=== PATIENT | female | born 1980 ===

== ENCOUNTER 2020-12-20 16:40 | Outpatient (REF) | payer OTHER, SELFPAY ==
--- NOTE | ~2020-12-20 | XR_ITS ---
EXAMINATION: XR SHOULDER, RIGHT CLINICAL INFORMATION: Pain right shoulder. COMPARISON: None TECHNIQUE: AP external rotation, Grashey, scapular Y, and axillary views of the right shoulder. FINDINGS: The bones and soft tissues are normal. No fracture. Glenohumeral and acromioclavicular alignment is anatomic with normal joint space. No abnormal soft tissue calcifications. XR/XR shoulder RT min 2V IMPRESSION: Unremarkable right shoulder exam.
== END 2020-12-20 16:41 | disposition home or self-care (01) ==
LOC: HO.XRAY 16:40
PROVIDERS: PCP Internal Medicine; Visit Provider Internal Medicine
DX: M25.511 Pain in right shoulder (principal)
CPT/HCPCS: 73030

== ENCOUNTER → 2021-01-15 13:52 | Outpatient (BNVA) | payer OTHER, SELFPAY | PROVIDERS: PCP Internal Medicine; Visit Provider Physician Assistant ==

== ENCOUNTER 2021-01-31 15:01 | Outpatient (REF) | payer OTHER, SELFPAY ==
--- NOTE | ~2021-01-31 | XR_ITS ---
EXAMINATION: XR CERVICAL SPINE CLINICAL INFORMATION: Radiculopathy. COMPARISON: None TECHNIQUE: 3 views of the cervical spine were obtained. FINDINGS: There are no prevertebral soft tissue or bony abnormalities demonstrated. No compression fractures or subluxations are identified. Alignment is maintained at the atlanto-axial articulation. The disc spaces are preserved. No endplate changes are seen. There are bilateral C7 small cervical ribs. The prevertebral soft tissues are normal. The neural foramina are patent. XR/XR cervical spine 3V IMPRESSION: Small bilateral C7 cervical ribs. No visible acute fracture, dislocation or lytic process.
== END 2021-01-31 15:02 | disposition home or self-care (01) ==
LOC: HO.XRAY 15:01
PROVIDERS: PCP Internal Medicine; Visit Provider Nurse Practitioner Family
DX: M54.12 Radiculopathy, cervical region (principal); M25.511 Pain in right shoulder; G89.29 Other chronic pain; Z79.899 Other long term (current) drug therapy
CPT/HCPCS: 72040

== ENCOUNTER 2021-03-08 16:00 | Outpatient (RCR) | payer OTHER, SELFPAY ==
--- NOTE | 2021-02-08 14:54 | MHC.PT.EP ---
[facility] [place] Office [place] Office [place] Office [address] Philip Cortes [address] [phone] F: [phone] F: [phone] F: [phone] F: [phone] Physical Therapy Plan of Care Date of Evaluation: Date of Surgery: NA Diagnosis: Disorder of bone unspecified radiculopathy cervical region Assessment: 40 year old female referred for Disorder of bone unspecified radiculopathy cervical region . Pt reports of having intermittent pain in neck, R shoulder which travels down to her hand for about a year. Examination reveals 0/10 pain at rest and 4/10 pain during morning, pain with shoulder ROMs, decreased shoulder and scap strength, positive empty can and hawkin amos and altered posture. Symptoms suggestive of possible posterior impingement. She would benefit from PT to address the aforementioned impairments and improve tolerance to activities like over head reaching, sleeping and returning to PLOF. She is motivated to pariticipate in therapy. Frequency and Duration: The patient will be seen 2/week for 5 weeks Short Term Goals: 1. Pt will have 50% decrease in pain which will enable her to sleep through the night in 2 weeks. 2. Pt will be able to perform all ADLs without pain in 3 weeks. [employer] Goals: 1. Pt will be independent with HEP for symptom management and maintenance following d/c in 4 weeks. 2. Pt will return to PLOF in 5 weeks. Treatment Plan: Modalities to reduce pain, spasms and effusion. Manual therapy to restore motion and function. Therapeutic exercise to improve strength and flexibility. Neuromuscular re-education for posture and balance. Therapeutic activities to return to functional activities of daily living. Electronically signed by: Brianna Loza, PT, DPT Please sign and return to therapist. Thank you for your referral.
--- NOTE | 2021-04-06 11:53 | MHC.PT.DC ---
[facility] [place] Office [place] Office [place] Office [address] Philip Cortes [address] [phone] F: [phone] F: [phone] F: [phone] F: [phone] Physical Therapy Discharge Report Diagnosis: Disorder of bone unspecified radiculopathy cervical region Date of Surgery: NA Date of Evaluation: 02/08/21 Date of Discharge: 04/06/21 Treatments to Date: 7 Cancellations to Date: 0 No Shows to Date: 0 Discharge Status: Achieved Goals Improved Function Independent with HEP Discharge Summary: Yamilka completed 7 PT visits and was painfree. She has therefore been discharged from therapy. Electronically signed by: Brianna Loza, PT DPT Please sign and return to therapist. Thank you for your referral.
== END 2021-04-06 11:53 | disposition other institution (70) ==
LOC: HO.PT 16:00
PROVIDERS: PCP Internal Medicine; Visit Provider Physician Assistant
DX: M89.9 Disorder of bone, unspecified (principal); M54.12 Radiculopathy, cervical region
CPT/HCPCS: 97110; 97112; 97140; 97161; 97530

== ENCOUNTER 2021-03-31 08:48 | Outpatient (REF) | payer OTHER, SELFPAY ==
[2021-03-31 10:26] LABS: Alanine Aminotransferase 13 U/L (0-31); Albumin Level 4.4 g/dL (3.5-5.0); Anion Gap 17 (12-20); Aspartate Amino Transferase 16 U/L (5-31); Bilirubin Total 0.9 mg/dL (0.0-1.0); Blood Urea Nitrogen 17 mg/dL (9-16); Calcium 9.4 mg/dL (8.4-10.2); Carbon Dioxide 21 mmol/L (22-29); Chloride 105 mmol/L (96-108); Cholesterol 149 mg/dL; Estimated Glomerular Filt Rate > 60; Glucose Fasting 94 mg/dL (60-99); HDL Cholesterol 25 mg/dL; LDL Cholesterol Calculated 50 mg/dl; Potassium 4.3 mmol/L (3.3-5.1); Sodium 139 mmol/L (135-145); Total Protein 7.3 g/dL (6.5-8.0); Triglycerides 374 mg/dL
[2021-03-31 10:27] LABS: Alkaline Phosphatase 52 U/L (39-117)
[2021-04-03 20:32] LABS: Vitamin D 25-OH, D2 <4 ng/mL; Vitamin D 25-OH, D3 28 ng/mL; Vitamin D 25-OH, Total 28 ng/mL (30-100)
== END 2021-03-31 08:49 | disposition home or self-care (01) ==
LOC: HO.LAB 08:48
PROVIDERS: PCP Internal Medicine; Visit Provider Internal Medicine
DX: E55.9 Vitamin D deficiency, unspecified (principal); Z82.49 Family history of ischemic heart disease and other diseases of the circulatory system
CPT/HCPCS: 36415; 80053; 80061; 82306

== ENCOUNTER 2021-05-11 15:37 | Outpatient (REF) | payer OTHER, SELFPAY ==
--- NOTE | ~2021-05-11 | MM_ITS ---
EXAMINATION: MM SCREENING DIGITAL BREAST TOMOSYNTHESIS, BILATERAL CLINICAL INFORMATION: Screening. Asymptomatic. No prior breast imaging. Age 41. No known family history breast cancer. The lifetime risk of breast cancer based on the Tyrer-Cuzick Model is 7%. COMPARISON: None (current study represents initial baseline exam). TECHNIQUE: Digital breast tomosynthesis is performed in both the craniocaudal and mediolateral oblique views along with computer-aided detection (CAD). Synthesized 2D images are generated from the tomosynthesis. Additional left MLO view is provided. FINDINGS: There are scattered areas of fibroglandular density (ACR BI-RADS breast composition Category b). Breast tissue composition borders on heterogeneously dense. There are no significant masses, abnormal calcifications, or other abnormalities. Skin contours are smooth. MM/MM tomosynthesis screening BI IMPRESSION: No mammographic evidence of malignancy. ASSESSMENT: BI-RADS 1: Negative RECOMMENDATION: Routine annual mammography screening. This patient's information was entered into a reminder system with a target due date for their next mammogram.
== END 2021-05-11 15:38 | disposition home or self-care (01) ==
LOC: HO.MAMMO 15:37
PROVIDERS: Visit Provider Internal Medicine
DX: Z12.31 Encounter for screening mammogram for malignant neoplasm of breast (principal)
CPT/HCPCS: 77063; 77067

== ENCOUNTER → 2021-10-15 13:40 | Outpatient (BNVA) | payer OTHER, SELFPAY | PROVIDERS: PCP Internal Medicine; Referring Provider Internal Medicine; Visit Provider Surgery | DX: K64.4 Residual hemorrhoidal skin tags (principal); K64.8 Other hemorrhoids | CPT/HCPCS: 46600 ==

== ENCOUNTER 2021-12-07 07:25 | Day surgery (SDC) | payer OTHER, SELFPAY ==
[2021-12-03 11:08] VITALS: BMI 49.8
--- NOTE | 2021-12-06 09:18 | HO.ANESPROP2 ---
Documented by User: Nevin Connelly NP 12/06/21 09:18 HPI - Anesthesia Eval Consult details Narrative: 41yo F for Exam Under Anesthesia,Hemorrhoidectomy PMFSH Active Problems Active Problems: All Active Problems (Updated 10/15/21 @ 14:04 by Carlos Szymanski MD) Internal and external bleeding hemorrhoids (Acute) Dermoid cyst of face (Acute) Hemorrhoids (Acute) Hypovitaminosis D (Acute) Blurry vision (Acute) Family history of hypertension (Acute) Scapular dysfunction (Acute) Cervical radiculopathy (Acute) Right shoulder pain (Acute) Past Medical History Medical History Blurry vision Dermoid cyst of face Family history of hypertension Hemorrhoids Hypovitaminosis D Internal and external bleeding hemorrhoids Right shoulder pain Family History Family History Father Neuropathy Mother No problems noted. 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 Current occupational exposures/hazards: No Meds Allergies Allergy/AdvReac Type Severity Reaction Status Date / Time No Known Allergies Allergy Verified 12/07/21 07:35 Home Medications Medication Instructions Recorded Confirmed Last Taken Type cholecalciferol (vitamin D3) 25 25 mcg PO DAILY 07/26/21 10/15/21 Unknown History mcg (1,000 unit) capsule Exam Exam Date and Time: December 06, 2021 0918 Height,Weight and Vital Signs: Height 5 ft 1 in Weight 119.748 kg Assessment and Plan Assessment Anesthesia Assessment: Chart Reviewed Documented by User: Radha Guo MD 12/07/21 08:49 [facility] Past Medical History Medical History Blurry vision Dermoid cyst of face Family history of hypertension Hemorrhoids Hypovitaminosis D Internal and external bleeding hemorrhoids Right shoulder pain Family History Family History Father Neuropathy Mother No problems noted. Family history of problems with anesthesia: No Surgical History Surgical History (Updated 12/07/21 @ 08:48 by Radha Guo MD) Hx of wisdom tooth extraction No pertinent past surgical history History of Problems with Anesthesia: No Social History Social History Housing: Apartment Alcohol intake: never Patient Tobacco Use Status: Never used Tobacco e-Cigarette/Vaping Use: Never Used Second Hand Smoke Exposure: No Use of substances other than those prescribed or required for medical reasons: No Are you DNR?: No Advance Directives: No Advance Directives Information Provided: Yes service: No Current occupational status: employed 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 Current occupational exposures/hazards: No Meds Allergies Allergy/AdvReac Type Severity Reaction Status Date / Time No Known Allergies Allergy Verified 12/07/21 07:35 Home Medications Medication Instructions Recorded Confirmed Last Taken Type cholecalciferol (vitamin D3) 25 25 mcg PO DAILY 07/26/21 10/15/21 Unknown History mcg (1,000 unit) capsule Exam Height,Weight and Vital Signs: Height 5 ft 1 in Weight 119.748 kg Vital Signs Temp Pulse Resp BP Pulse Ox 12/07/21 07:48 98.0 F 86 16 111/71 97 Pertinent Lab Results Pertinent Lab Results: Lab Results 12/07/21 Range/Units 07:30 Urine Test NEGATIVE (NEGATIVE) Airway Mallampati Class: II TM Dist: >3cm Neck ROM: Full Loose/Missing/Broken Teeth: Yes ([place] teeth ) Heart: RRR Lungs: CTAB Assessment and Plan Assessment Anesthesia Assessment: Anesthesia Plan Discussed Final Anesthetic Review Family History of Problems with Anesthesia: No History of Problems with Anesthesia: No NPO: Yes ASA Class: II Final Preanesthetic Review: No Changes in Pt Med Stat, Meds/Allgs Chart Reviewed, Consent Obtained/Reviewed and Anes Risks/Benef Reviewed Patient Risk: Low Procedure Risk: Low Assessment/Block/Sedation in SS: Assess/Block/Sedation-SS Anesthetic Plan Anesthetic Plan: GA Disposition: Standard PACU
[2021-12-07] VITALS (11 sets, daily range): BP systolic 102–125; BP diastolic 58–82; PULSE 63–96; RESP 14–17; TEMP 36.1–36.7; O2SAT 97–98; BMI 22.6
[2021-12-07 07:54] LABS: UPreg QC Valid YES; Urine Pregnancy NEGATIVE (NEGATIVE)
[2021-12-07] MEDS: Lactated Ringers 1,000 ML 100 ML IVCONT (08:00)
--- NOTE | 2021-12-07 08:42 | MHC.SHP ---
Pre-Procedural Eval Section A Date of Service: 12/07/21 The patient is an INPATIENT: No Section B Chief Complaint: residual hemorrhoidal skin tags, Details of Present Illness: has had bleeding hemorrhoids for many years Relevant Family History (Specify if Yes): No Relevant Social History: None Present Medications: see Short Stay Collaborative assessment Medical History: No relevant PMH Allergies: Allergies Allergy/AdvReac Type Severity Reaction Status Date / Time No Known Allergies Allergy Verified 12/07/21 07:35 Review of Systems Sugical H&P ROS: Negative: Constitution, Cardiovascular, Respiratory, Neurological, Psychiatric, Hem-Onc, Allergic/Immunologic, Genitourinary, Musculoskeletal, Integumentary, Endocrine and Eyes/Ears/Nose/Throat and Yes, Specify: Gastrointestinal ( bleeding with BMs) Exam Surgical H&P Exam: Normal: HEENT, Normal: Heart, Normal: Lungs, Normal: Extremities, Normal: Abdomen, Normal: Skin and Normal: Neurological Plan Diagnosis/Plan: Unchanged I have reviewed the history and physical and performed a pertinent physical examination on my patient. No changes have occurred unless specified.
--- NOTE | 2021-12-07 09:42 | W.PM.OPN ---
Operative Note Operative Note Date of Service: 12/07/21 Narrative: preop diagnosis: Internal external hemorrhoids with bleeding Postop diagnosis: the same procedure: Exam under anesthesia hemorrhoidectomy x2 columns Surgeon: Carlos Szymanski MD The patient is a 41-year-old female with note of hemorrhoids, with complaints of frequent bleeding as well as pain. She therefore wanted to proceed with hemorrhoidectomy. She understood the technique of the procedure. She was aware of the risks, benefits, and alternatives. She was brought to the operating room placed in prone dorinda-knife position under general anesthesia via endotracheal tube. The buttocks were retracted with wide tape laterally. The perianal area was prepped and draped in the usual sterile fashion. A surgical time-out was done. The patient received Cefotan 2 g IV preoperatively . I infiltrated the perianal area with lidocaine 1%. I then examined the anal orifice which showed no hemorrhoids on the right posterolateral as well as on the left anterolateral area. I inserted the Jami Murphy retractor. I examined the anal canal circumferentially. these hemorrhoidal columns were noted to be a mix of internal and external. There were no other lesions on examination. There was no fissure I applied a Aragon grasper at the hemorrhoidal column posteriorly to retract this. I have made a figure of stitch at the pedicle using a chromic 3-0 stitch. I made an incision around this hemorrhoidal column to the perianal skin with the blade 15. I excised this hemorrhoidal column above the plane of sphincters using scissors. I excised this hemorrhoidal column with a running chromic 3-0 stitch with additional hemostatic [id number] sutures placed . I duplicated this same procedure on the hemorrhoidal column anteriorly. Again this was retracted with a Aragon grasper. I made a figure of 8 stitch at the pedicle. I made an incision around this hemorrhoidal column to the perianal skin with a blade 15. I excised this above the plane of sphincters. I closed this incision with a running chromic 3-0 stitch with additional hemostatic sutures placed . Once hemostasis was ensured, I proceeded to then infiltrated the perianal area with Marcaine 0.5% for postop analgesia. The procedure was then completed . The patient tolerated procedure well. No complication noted. Initial fine counts of sponges instruments were correct. Estimated blood loss about 15 cc . The patient was extubated without difficulty and transferred to the recovery room with stable vital signs.
[2021-12-07] MEDS: oxyCODONE HCl Immed Release 5 MG TABLET PO (10:13)
[2021-12-07] MEDS: Acetaminophen 325 MG TABLET 650 MG PO (10:13)
[2021-12-07] MEDS: fentaNYL citrate/PF 100 MCG/2 ML VIAL 25 MCG IVPUSH ×2 (10:17→10:37)
== END 2021-12-07 11:50 | disposition home or self-care (01) ==
PROVIDERS: Nurse Practitioner; PCP Internal Medicine; Visit Provider Surgery
PROC: (CPT 46260; principal; 2021-12-07 09:00)
DX: K64.8 Other hemorrhoids (principal); K64.4 Residual hemorrhoidal skin tags; E55.9 Vitamin D deficiency, unspecified; H53.8 Other visual disturbances; Z79.899 Other long term (current) drug therapy
CPT/HCPCS: 46260; 81025; 88304; J0690; J1100; J1885; J2250; J2405; J3010

== ENCOUNTER → 2021-12-17 15:59 | Outpatient (BNVA) | payer OTHER, SELFPAY | PROVIDERS: PCP Internal Medicine; Visit Provider Surgery ==

== ENCOUNTER → 2022-01-28 08:58 | Outpatient (BNVA) | payer OTHER, SELFPAY | PROVIDERS: PCP Internal Medicine; Referring Provider Internal Medicine; Visit Provider Surgery | DX: Z13.89 Encounter for screening for other disorder (principal) ==

== ENCOUNTER 2022-05-14 14:31 | Outpatient (REF) | payer OTHER, SELFPAY ==
--- NOTE | ~2022-05-14 | MM_ITS ---
EXAMINATION: MM SCREENING DIGITAL BREAST TOMOSYNTHESIS, BILATERAL CLINICAL INFORMATION: Screening. Asymptomatic. The lifetime risk of breast cancer based on the Tyrer-Cuzick Model is 8.2%. COMPARISON: Mammography: May 11, 2021 TECHNIQUE: Digital breast tomosynthesis is performed in both the craniocaudal and mediolateral oblique views along with computer-aided detection (CAD). Synthesized 2D images are generated from the tomosynthesis. FINDINGS: The breasts are heterogeneously dense, which may obscure small masses (ACR BI-RADS breast composition Category c). There are no significant masses, abnormal calcifications, or other abnormalities. MM/MM tomosynthesis screening BI IMPRESSION: There are no significant changes from prior study. ASSESSMENT: BI-RADS 1: Negative RECOMMENDATION: Routine annual mammography screening. This patient's information was entered into a reminder system with a target due date for their next mammogram.
== END 2022-05-14 14:32 | disposition home or self-care (01) ==
LOC: HO.MAMMO 14:31
PROVIDERS: Visit Provider Internal Medicine
DX: Z12.31 Encounter for screening mammogram for malignant neoplasm of breast (principal)
CPT/HCPCS: 77063; 77067

== ENCOUNTER 2023-04-28 14:33 | Outpatient (AMB) | payer OTHER, SELFPAY ==
[2023-04-28 14:36] VITALS: BP 112/70; BMI 24.6
--- NOTE | 2023-04-28 14:36 | MHC.PC.OV ---
Vital Signs 04/28/23 14:36 Height 5 ft 1 in Weight 130 lb BMI 24.6 BP 112/70 Blood Pressure Location Lt brachial Position Sitting Intake Visit Reasons: body rash Intake Note: Patient here for a rash Cad Administrator Required: No Accompanied by: Self / Same As Patient Allergies No Known Allergies Allergy (Verified 04/28/23 14:44) Medication List - Last Reconciled 04/28/23 by Shirley Heart MD No Known Home Meds Tobacco use date assessed: 04/28/23 Dental Screening Dental Screen Date: 04/28/23 Did you have a dental visit in the last 12 months?: Yes Did you have a dental problem in the last 6 months where you did not have access to dental care?: No Was dental information given to patient?: Patient has dentist HPI HPI Comments History of Present Illness Details This is a 43-year-old female that complains of a maculopapular pruritic rash that started about 2-3 weeks ago. Has tried Benadryl. She has it in back, upper limbs, chest and neck and is very very mild. No fever or lymphadenopathy. No symptoms associated with rash. Travel recently but she had it already. No new soaps, detergents, foods or plants. [facility] Medical History (Updated 04/28/23 @ 15:01 by Shirley Heart MD) Blurry vision Dermoid cyst of face Family history of hypertension Hemorrhoids Hypovitaminosis D Internal and external bleeding hemorrhoids Physical exam Right shoulder pain Surgical History H/O hemorrhoidectomy Hx of wisdom tooth extraction Family History Father Neuropathy Mother No problems noted. 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 1. Little interest or pleasure in doing things: not at all 2. Feeling down, depressed, or hopeless: not at all 3. Trouble falling or staying asleep, or sleeping too much: not at all 4. Feeling tired or having little energy: not at all 5. Poor appetite or overeating: not at all 6. Feeling bad about yourself - or that you are a failure or have let yourself or your family down: not at all 7. Trouble concentrating on things, such as reading the newspaper or watching television: not at all 8. Moving or speaking so slowly that other people could have noticed. Or the opposite - being so fidgety or restless that you have been moving around a lot more than usual: not at all 9. Thoughts that you would be better off or of hurting yourself in some way: not at all Total score: 0 Depression Screening Interpretation: Negative 93829 - PHQ-9 Billing: Yes Source: Developed by Drs. Heladio Giraldo, Radha Ibrahim, Jd Stauffer and colleagues, with an educational bert from [employer]. Thrive Questionnaire Date Thrive assessed: 04/28/23 I am a: Patient What is your living situation today?: I have a steady place to live Within the past 12 months, did the food you bought not last and you didn't have the money to get more?: Never true Within the past 12 months, did you worry whether your food would run out before you got money to buy more?: Never true Do you have trouble paying for medicines?: No Do you have trouble getting transportation to medical appointments?: No Do you have trouble paying your heating and electricity bill?: No Do you have trouble taking care of your child, family member or friend?: No Do you have trouble with day-to-day activities such as bathing, preparing meals, shopping, managing finances, etc.?: No Are you currently unemployed and looking for a job?: No Are you interested in more education?: No Please select the resources that you would like help with: None Currently or been in a relationship where the following occur: no concerns reported AUDIT C Alcohol Use Questionnaire (AUDIT-C) 1. How often do you have a drink containing alcohol?: Never Total Score: 0 MARIA ELENA-7 AMB Questionnaire MARIA ELENA-7 Date MARIA ELENA - 7 assessed: 04/28/23 Feeling nervous, anxious, or on edge: 0 = Not at all Not being able to stop or control worryin = Not at all Worrying too much about different things: 0 = Not at all Trouble relaxin = Not at all Being so restless that it is hard to sit still: 0 = Not at all Becoming easily annoyed or irritable: 0 = Not at all Feeling afraid as if something awful might happen: 0 = Not at all Total MARIA ELENA-7 score (0-4 normal; 5-9 mild; 10-14 moderate; 15-21 severe): 0 Source: Developed by Drs. Heladio Giraldo, Radha Ibrahim, Jd Stauffer and colleagues, with an educational bert from [employer]. MARIA ELENA-7 Assessment Billing MARIA ELENA-7 Assessment Tool: MARIA ELENA-7 Assessment 53852 Review of Systems Const All systems reviewed & are unremarkable except as noted in HPI and below Eyes Reports no additional complaints, Denies change in vision and Denies other visual disturbances Card Denies chest pain at rest, Denies chest pain with activity, Denies edema, Denies irregular heart rhythm, Denies claudication, Denies dyspnea, Denies dyspnea on exertion, Denies orthopnea, Denies paroxysmal nocturnal dyspnea and Denies slow heart rate Resp Denies cough, Denies dyspnea and Denies dyspnea on exertion GI Denies abdominal pain, Denies change in bowel habits, Denies excessive flatus, Denies nausea and Denies vomiting Denies urinary incontinence, Denies urinary hesitancy and Denies urinary urgency Musc Denies abnormal gait, Denies atrophy, Denies deformity and Denies limited range of motion Skin/Breast Denies bleeding lesions, Denies changing lesions and Reports rash Neuro Denies abnormal gait and Denies lack of coordination Physical exam (Primary Care) Vital Signs: Last Vital Signs BP 112/70 04/28/23 14:36 BMI result Body Mass Index 24.6 Tobacco/Smoking Status: Tobacco use Status Tobacco use date assessed 04/28/23 04/28/23 14:42 Patient Tobacco Use Status Never used Tobacco 04/28/23 14:42 Tobacco use type 04/28/23 14:42 e-Cigarette/Vaping Use Never Used 04/28/23 14:42 PHQ-9: PHQ-9 Score PHQ-9: Total score 0 04/28/23 14:42 Depression Screening Interpretation: Negative Thrive Assessment: Date of Thrive Assessment Date Thrive assessed 04/28/23 04/28/23 14:42 Currently or been in a relationship where the following occur: no concerns reported Eyes General: appearance normal, both eyes and all related structures Eyelids: Yes eyelids normal Conjunctivae: conjunctivae normal Neck Neck: Yes normal visual inspection and Yes supple Resp Effort & Inspection: normal respiratory effort Auscultation: clear to auscultation bilaterally Cardio Jugular venous distension: no JVD Rate: regular rate Rhythm: regular rhythm Heart sounds: S1 normal heart sound present and S2 normal heart sound present Skin Rashes: rashes noted maculopapular rash diffuse Extrem General: Yes full ROM Assessment and Plan Assessment & Plan (1) Rash: Code(s): R21 - Rash and other nonspecific skin eruption Plan: Start cetirizine. Start prednisone pack. Referred to Allergy and immunology. Orders: Referrals Allergy & Immunology Referral [id number] - Allergy, unspecified, initial encounter Medications: New cetirizine (All Day Allergy (cetirizine)) 10 mg PO DAILY 7 days PRN 7 tabs 0RF allergy symptoms prednisone Take 3 tabs the first 2 days, then 2 tabs for the next 2 days, then 1 tab for the next 2 days 10 mg PO DIRECTED 6 days PRN 12 tabs 0RF rash Coding Level of Care Code Est Pt Level 3 (38243) Diagnoses Rash R21 Additional Codes MARIA ELENA-7 Assessment Billing - MARIA ELENA-7 Assessment Tool: MARIA ELENA-7 Assessment 11618 ([id number]) Time Spent (min) 17
== END 2023-04-28 14:58 | disposition home or self-care (01) ==
PROVIDERS: PCP Internal Medicine; Visit Provider Internal Medicine
DX: R21 Rash and other nonspecific skin eruption (principal)
CPT/HCPCS: 99213

== ENCOUNTER 2023-06-02 09:53 | Outpatient (REF) | payer OTHER, SELFPAY ==
--- NOTE | ~2023-06-02 | MM_ITS ---
EXAMINATION: MM SCREENING DIGITAL BREAST TOMOSYNTHESIS, BILATERAL CLINICAL INFORMATION: Screening. Asymptomatic. COMPARISON: Mammography: 05/14/2022, 05/11/2021. TECHNIQUE: Digital breast tomosynthesis is performed in both the craniocaudal and mediolateral oblique views along with computer-aided detection (CAD). Synthesized 2D images are generated from the tomosynthesis. FINDINGS: The breasts are heterogeneously dense, which may obscure small masses (ACR BI-RADS breast composition Category c). There are no suspicious masses, suspicious grouped calcifications, or areas of architectural distortion. The parenchymal pattern is stable from prior exams. MM/MM tomosynthesis screening BI IMPRESSION: No mammographic evidence of malignancy. ASSESSMENT: BI-RADS BI-RADS 1 - Negative RECOMMENDATION: Routine annual mammography screening. 1 year F/U This examination should not preclude the clinical evaluation of a suspicious palpable abnormality. This patient's information was entered into a reminder system with a target due date for their next mammogram.
== END 2023-06-02 09:54 | disposition home or self-care (01) ==
LOC: HO.MAMMO 09:53
PROVIDERS: Visit Provider Internal Medicine
DX: Z12.31 Encounter for screening mammogram for malignant neoplasm of breast (principal)
CPT/HCPCS: 77063; 77067

== ENCOUNTER → 2023-06-02 10:00 | Outpatient (BNV) | payer OTHER, SELFPAY | PROVIDERS: Visit Provider Radiology Diagnostic Radiology | DX: Z12.31 Encounter for screening mammogram for malignant neoplasm of breast (principal) | CPT/HCPCS: 77063; 77067 ==

== ENCOUNTER 2023-10-16 11:42 | Outpatient (AMB) | payer OTHER, SELFPAY ==
--- NOTE | 2023-10-16 11:50 | MHC.OFFVIS ---
Intake Vital Signs 10/16/23 11:51 Height 5 ft 4 in Weight 133 lb BMI 22.8 BP 110/62 Intake Visit Reasons: New patient Annual Supervisor Cigar Making Machine Required: No Information Interpreted: clinical only Staffing Assistant: Staffing Assistant Present Allergies No Known Allergies Allergy (Verified 10/16/23 11:52) Medication List - Last Reconciled 10/16/23 by Ginette Leyva CNM No Known Home Meds Is last menstrual period known: Yes Last menstrual period: 09/20/23 Do you need a note to return to daycare/school/sports/work: No HPI New patient Annual HPI Details Patient is here for juice standardizer annual exam. She has never been here before she has a primary care provider at [facility] but the appointments keep getting rescheduled on her. She says she has not had any blood work done in long time. The last person she saw for juice standardizer issues was in [facility]. She had an IUD that had been in for 50 years and she had it removed a couple of years ago there. She was not having any trouble with it but she did not needed anymore because she is not sexually active. 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 She has no other health concerns at all really gets normal periods that last 5 days she has had her mammogram. She is not anxious about any STIs but would like testing just while I am checking everything. On questioning she reports that when she did have sex in the past her cervix would sometimes bleed. [facility] Medical History Physical exam Internal and external bleeding hemorrhoids Dermoid cyst of face Hemorrhoids Hypovitaminosis D Blurry vision Family history of hypertension Right shoulder pain Surgical History H/O hemorrhoidectomy Hx of wisdom tooth extraction Family History Father Neuropathy Mother No problems noted. 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 Current occupational exposures/hazards: No Cognitive needs: No Hearing needs: No Vision needs: No Female Reproductive History Menstrual Age of Menarche: 15 Duration of menses: 6-7 days Date of last menstrual period: 09/20/23 control method: none Total pregnancies: 2 Full term: 2 History of abnormal pap smear: No (unknown) Physical Exam Vital Signs: Last Vital Signs BP 110/62 10/16/23 11:51 BMI result Body Mass Index 22.8 Const General: healthy appearing, comfortable, no acute distress, well developed and alert Nutritional Appearance: average body habitus Orientation/consciousness: patient oriented x3 Limitations: no limitations HEENT Head: Yes normocephalic Neck Neck: Yes normal visual inspection Chest Chest palpation & inspection: normal inspection of the chest Breast/axilla inspection: normal inspection of the breasts and normal inspection of the axillae Breast/axilla palpation: normal palpation of the breasts and normal palpation of the axillae Resp Effort & Inspection: normal respiratory effort GI Inspection: Yes normal to inspection, No Abdominal wall edema and No distended Palpation (GI): Soft to palpation and nontender Other: Normal speculum exam vagina normal cervix appeared parous there was a reddened area at 11:00 o'clock. cervix did bleed quite readily with the Pap smear. Normal mucus otherwise. Uterus small anteverted mobile nontender as was cervix adnexa nontender not enlarged good tone with Kegel. General: Yes bladder normal to palpation External Female Exam: normal external appearance and normal appearance of the urethra Speculum Exam - Vagina: normal appearance of the vagina, normal palpation and normal vaginal discharge Speculum Exam - Cervix: normal appearance of the cervix, normal palpation and nontender Bimanual exam- vagina & uterus: normal bimanual exam, normal palpation, uterine size normal, bladder normal to palpation, consistency normal, normal palpation, uterine mobility normal, uterine shape normal, No Cervical tenderness present, non-tender and no cervical motion tenderness Bimanual Exam- Adnexa, other: normal adnexae, no masses, normal and No adnexal tenderness Neuro General: patient oriented x3 Assessment & Plan Assessment & Plan (1) Screening for cervical cancer: Code(s): Z12.4 - Encounter for screening for malignant neoplasm of cervix (2) Encounter for screening examination for sexually transmitted disease: Code(s): Z11.3 - Encounter for screening for infections with a predominantly sexual mode of transmission Plan -----Discussed in this visit the following: healthy balanced diet, regular and consistent exercise, getting recommended health screens, doing the best she can for her particular health concerns, kegel exercises, pap smear screening and followup recommendations, mammography screening and SBE, normal changes in cycles in her life stage--- . I do her a picture of the cervix where the red spot was at 11:00 o'clock will await the results of the Pap smear the cervix was quite friable with the Pap. I offered testing for STIs if she was interested and she excepted she may get them done now or await a visit with her primary to have primary blood work ordered. She says that needs to be rescheduled and she is not sure when it is because they rescheduled her appointment and give her gave her different provider the last time. Information about the patient portal also given she reviewed what she would do for control and at the very least she would use condoms she is not planning any sexual activity any time soon. She states she had her mammogram a couple months ago. Orders: Orders CT NG by PCR Today Z01.419 - Encounter for gynecological examination (general) (routine) without abnormal findings Bacterial Vaginosis Panel Today Z20.2 - Contact with and (suspected) exposure to infections with a predominantly sexual mode of transmission HIV Ab/Ag Today Z11.3 - Encounter for screening for infections with a predominantly sexual mode of transmission, Z12.4 - Encounter for screening for malignant neoplasm of cervix Pap Smear Today Z01.419 - Encounter for gynecological examination (general) (routine) without abnormal findings Hepatitis B Surface Antigen Today Z11.3 - Encounter for screening for infections with a predominantly sexual mode of transmission, Z12.4 - Encounter for screening for malignant neoplasm of cervix Hepatitis C Antibody Today Z11.3 - Encounter for screening for infections with a predominantly sexual mode of transmission, Z12.4 - Encounter for screening for malignant neoplasm of cervix Syphilis Screen Today Z11.3 - Encounter for screening for infections with a predominantly sexual mode of transmission, Z12.4 - Encounter for screening for malignant neoplasm of cervix Coding Level of Care Code New Pt Prev Care 40-64y(20536) Diagnoses Screening for cervical cancer Z12.4 Encounter for screening examination for sexually transmitted disease Z11.3
[2023-10-16 11:51] VITALS: BP 110/62; BMI 22.8
== END 2023-10-16 12:29 | disposition home or self-care (01) ==
LOC: HO.HWSM 11:42
PROVIDERS: PCP Internal Medicine; Visit Provider Advanced Practice Midwife
DX: Z01.419 Encounter for gynecological examination (general) (routine) without abnormal findings (principal); Z11.3 Encounter for screening for infections with a predominantly sexual mode of transmission
CPT/HCPCS: 99386

== ENCOUNTER 2023-10-16 11:42 | Outpatient (REF) | payer OTHER, SELFPAY ==
[2023-10-16 15:41] LABS: CT PCR NOT DETECTED (Not Detect.); NG PCR NOT DETECTED (Not Detect.)
[2023-10-17 08:21] LABS: HBsAGNum1 0.51 S/CO (0.00-0.99); HIV AB/AG Nonreactive (Nonreactive); HIV Num 1 0.05 S/CO (0.00-0.99); Hepatitis B Surface Antigen Negative (Negative); ~HepC Num1 0.09 S/CO (0.00-0.79); ~Hepatitis C Antibody Nonreactive (Nonreactive)
[2023-10-17 08:24] LABS: Syphilis Screen Nonreactive (Nonreactive)
[2023-10-17 15:23] LABS: BV Int Neg Control Negative (Negative); BV Int Pos Control Positive (Positive)
[2023-10-21 17:19] LABS: HPV mRNA E6/E7 rflx Not Detected (Not Detected)
== END 2023-10-16 11:43 | disposition home or self-care (01) ==
LOC: HO.LAB 11:42
PROVIDERS: PCP Internal Medicine; Visit Provider Advanced Practice Midwife
DX: Z01.419 Encounter for gynecological examination (general) (routine) without abnormal findings (principal); Z11.51 Encounter for screening for human papillomavirus (HPV); Z11.4 Encounter for screening for human immunodeficiency virus [HIV]; Z20.2 Contact with and (suspected) exposure to infections with a predominantly sexual mode of transmission
CPT/HCPCS: 0353U; 86780; 86803; 87340; 87389; 87480; 87510; 87624; 87660; 88142

== ENCOUNTER 2024-06-09 07:20 | Outpatient (REF) | payer OTHER, SELFPAY ==
[2024-06-09 08:25] LABS: Alanine Aminotransferase 14 U/L (0-31); Albumin Level 4.3 g/dL (3.5-5.0); Alkaline Phosphatase 43 U/L (39-117); Anion Gap 10 (12-20); Aspartate Amino Transferase 15 U/L (5-31); Blood Urea Nitrogen 21 mg/dL (9-16); Calcium 9.6 mg/dL (8.4-10.2); Carbon Dioxide 26 mmol/L (22-29); Chloride 109 mmol/L (96-108); Cholesterol 131 mg/dL (<200); Estimated Glomerular Filt Rate > 60; Glucose Fasting 105 mg/dL (60-99); HDL Cholesterol 33 mg/dL (>40); LDL Cholesterol Calculated 60 mg/dL (<100); Sodium 141 mmol/L (135-145); Triglycerides 190 mg/dL (<150)
[2024-06-09 08:42] LABS: Vitamin D 25-OH Total 21.8 ng/mL (>30)
== END 2024-06-09 07:21 | disposition home or self-care (01) ==
LOC: HO.LAB 07:20
PROVIDERS: PCP Internal Medicine; Visit Provider Internal Medicine
DX: Z00.00 Encounter for general adult medical examination without abnormal findings (principal); E78.5 Hyperlipidemia, unspecified; E55.9 Vitamin D deficiency, unspecified
CPT/HCPCS: 36415; 80053; 80061; 82306

== ENCOUNTER 2024-06-09 17:00 | Outpatient (AMB) | payer OTHER, SELFPAY ==
[2024-06-09 17:13] VITALS: BP 120/70; BMI 22.8
--- NOTE | 2024-06-09 17:13 | A.OFFPC_ITS ---
Vital Signs 06/09/24 17:13 Height 5 ft 4 in Weight 133 lb BMI 22.8 BP 120/70 Blood Pressure Location Lt brachial Position Sitting Intake Visit Reasons: OVERDUE ANNUAL PE Intake Note: Patient here for an annual physical exam Transmission Worker Required: No Accompanied by: Self / Same As Patient Allergies No Known Allergies Allergy (Verified 06/09/24 17:22) Medication List - Last Reconciled 06/09/24 by Shirley Heart MD No Known Home Meds Tobacco use date assessed: 06/09/24 Dental Screening Dental Screen Date: 06/09/24 Did you have a dental visit in the last 12 months?: Yes Did you have a dental problem in the last 6 months where you did not have access to dental care?: No Was dental information given to patient?: Patient has dentist HPI HPI Comments History of Present Illness Details This is a 44-year-old female that comes for her physical exam. Mammogram done 2022 was normal. Pap smear done 2022. Labs were discussed and has low vitamin-D and will be supplemented. Complains of halitosis and throat discomfort with phlegm when she wakes up in the morning most likely due to postnasal drip. I will refer her to ENT. [facility] Medical History (Updated 06/09/24 @ 17:38 by Shirley Heart MD) Cervical radiculopathy Scapular dysfunction Allergic reaction Rash Screening for cervical cancer Encounter for screening examination for sexually transmitted disease Physical exam Internal and external bleeding hemorrhoids Dermoid cyst of face Hemorrhoids Hypovitaminosis D Blurry vision Family history of hypertension Right shoulder pain Surgical History H/O hemorrhoidectomy Hx of wisdom tooth extraction Family History Father Neuropathy Mother No problems noted. 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 1. Little interest or pleasure in doing things: not at all 2. Feeling down, depressed, or hopeless: not at all 3. Trouble falling or staying asleep, or sleeping too much: not at all 4. Feeling tired or having little energy: not at all 5. Poor appetite or overeating: not at all 6. Feeling bad about yourself - or that you are a failure or have let yourself or your family down: not at all 7. Trouble concentrating on things, such as reading the newspaper or watching television: not at all 8. Moving or speaking so slowly that other people could have noticed. Or the opposite - being so fidgety or restless that you have been moving around a lot more than usual: not at all 9. Thoughts that you would be better off or of hurting yourself in some way: not at all Total score: 0 Depression Screening Interpretation: Negative Depression Screening Done: Yes 75485 - PHQ-9 Billing: Yes Source: Developed by Drs. Heladio Giraldo, Radha Ibrahim, Jd Stauffer and colleagues, with an educational bert from [employer]. Thrive Questionnaire Date Thrive assessed: 06/09/24 I am a: Patient What is your living situation today?: I have a steady place to live Within the past 12 months, did the food you bought not last and you didn't have the money to get more?: Never true Within the past 12 months, did you worry whether your food would run out before you got money to buy more?: Never true Do you have trouble paying for medicines?: No Do you have trouble getting transportation to medical appointments?: No Do you have trouble paying your heating and electricity bill?: No Do you have trouble taking care of your child, family member or friend?: No Do you have trouble with day-to-day activities such as bathing, preparing meals, shopping, managing finances, etc.?: No Are you currently unemployed and looking for a job?: No Are you interested in more education?: No Please select the resources that you would like help with: None Currently or been in a relationship where the following occur: No concerns reported THRIVE Score: 0 AUDIT C Alcohol Use Questionnaire (AUDIT-C) 1. How often do you have a drink containing alcohol?: Never Total Score: 0 Score Reviewed/Action Taken: No MARIA ELENA-7 AMB Questionnaire MARIA ELENA-7 Date MARIA ELENA - 7 assessed: 06/09/24 Feeling nervous, anxious, or on edge: 0 = Not at all Not being able to stop or control worryin = Not at all Worrying too much about different things: 0 = Not at all Trouble relaxin = Not at all Being so restless that it is hard to sit still: 0 = Not at all Becoming easily annoyed or irritable: 0 = Not at all Feeling afraid as if something awful might happen: 0 = Not at all Total MARIA ELENA-7 score (0-4 normal; 5-9 mild; 10-14 moderate; 15-21 severe): 0 Source: Developed by Drs. Heladio Giraldo, Radha Ibrahim, Jd Stauffer and colleagues, with an educational bert from [employer]. MARIA ELENA-7 Assessment Billing MARIA ELENA-7 Assessment Tool: MARIA ELENA-7 Assessment [id number] Review of Systems Const All systems reviewed & are unremarkable except as noted in HPI and below ENT Reports halitosis and Reports post nasal drip Card Denies chest pain at rest, Denies chest pain with activity, Denies edema, Denies irregular heart rhythm, Denies claudication, Denies dyspnea, Denies dyspnea on exertion, Denies orthopnea, Denies paroxysmal nocturnal dyspnea and Denies slow heart rate Resp Denies cough, Denies dyspnea and Denies dyspnea on exertion GI Denies abdominal pain, Denies change in bowel habits, Denies excessive flatus, Denies nausea and Denies vomiting Denies urinary incontinence, Denies urinary hesitancy and Denies urinary urgency Musc Denies abnormal gait, Denies atrophy, Denies deformity and Denies limited range of motion Skin/Breast Denies bleeding lesions, Denies changing lesions and Denies rash Neuro Denies abnormal gait and Denies lack of coordination Physical exam (Primary Care) Vital Signs: Last Vital Signs BP 120/70 06/09/24 17:13 BMI result Body Mass Index 22.8 Tobacco/Smoking Status: Tobacco use Status Tobacco use date assessed 06/09/24 06/09/24 17:20 Patient Tobacco Use Status Never used Tobacco 06/09/24 17:20 Tobacco use type 05/08/23 13:08 e-Cigarette/Vaping Use Never Used 06/09/24 17:20 PHQ-9: PHQ-9 Score PHQ-9: Total score 0 06/09/24 17:20 Depression Screening Interpretation: Negative Thrive Assessment: Date of Thrive Assessment Date Thrive assessed 06/09/24 06/09/24 17:20 Currently or been in a relationship where the following occur: No concerns reported [facility] Head: Yes normal to inspection, Yes normocephalic and Yes atraumatic Ears: external ears normal Eyes General: appearance normal, both eyes and all related structures Eyelids: Yes eyelids normal Conjunctivae: conjunctivae normal Neck Neck: Yes normal visual inspection and Yes supple Resp Effort & Inspection: normal respiratory effort Auscultation: clear to auscultation bilaterally Cardio Jugular venous distension: no JVD Rate: regular rate Rhythm: regular rhythm Heart sounds: S1 normal heart sound present and S2 normal heart sound present GI Inspection: Yes normal to inspection Palpation (GI): Soft to palpation and nontender Auscultation: normal bowel sounds Skin General skin exam: no rashes or lesions noted Neuro General: no focal motor deficits Extrem General: Yes full ROM Psych Appearance: grossly normal Assessment and Plan Assessment & Plan (1) Physical exam: Code(s): Z00.00 - Encounter for general adult medical examination without abnormal findings Plan: Repeat in a year. (2) Throat discomfort: Code(s): R07.0 - Pain in throat Plan: Referred to ENT. Orders: Referrals Ear/Nose/Throat Referral R07.0 - Pain in throat Medications: New cholecalciferol (vitamin D3) 25 mcg PO DAILY 90 days 90 caps 0RF Coding Level of Care Code Est Pt Level 3 (75645) Est Pt Prev Care 40-64y(10067) Diagnoses Physical exam Z00.00 Throat discomfort R07.0 Additional Codes MARIA ELENA-7 Assessment Billing - MARIA ELNEA-7 Assessment Tool: MARIA ELENA-7 Assessment [id number] ([id number]) Time Spent (min) 30
== END 2024-06-09 17:32 | disposition home or self-care (01) ==
PROVIDERS: PCP Internal Medicine; Visit Provider Internal Medicine
DX: Z00.00 Encounter for general adult medical examination without abnormal findings (principal); E55.9 Vitamin D deficiency, unspecified; R07.0 Pain in throat
CPT/HCPCS: 99213; 99396

== ENCOUNTER 2024-08-07 10:25 | Outpatient (REF) | payer OTHER, SELFPAY ==
--- NOTE | ~2024-08-07 | MM_ITS ---
EXAMINATION: MM SCREENING DIGITAL BREAST TOMOSYNTHESIS, BILATERAL CLINICAL INFORMATION: Screening. Asymptomatic. COMPARISON: Mammography: Comparison is made with available priors TECHNIQUE: Digital breast mammography with tomosynthesis is performed in both the craniocaudal and mediolateral oblique views along with computer-aided detection (CAD). FINDINGS: The breasts are heterogeneously dense, which may obscure small masses (ACR BI-RADS breast composition Category c). There are no significant masses, abnormal calcifications, or other abnormalities. MM/MM tomosynthesis screening BI IMPRESSION: No mammographic evidence of malignancy. ASSESSMENT: BI-RADS BI-RADS 1 - Negative RECOMMENDATION: Routine annual mammography screening. 1 year F/U This examination should not preclude the clinical evaluation of a suspicious palpable abnormality. This patient's information was entered into a reminder system with a target due date for their next mammogram. Electronically signed by: Silva Suarez DO 08/20/2024 10:08 AM ED[facility]ermin
== END 2024-08-07 10:26 | disposition home or self-care (01) ==
LOC: HO.MAMMO 10:25
PROVIDERS: PCP Internal Medicine; Visit Provider Internal Medicine
DX: Z12.31 Encounter for screening mammogram for malignant neoplasm of breast (principal)
CPT/HCPCS: 77063; 77067

== ENCOUNTER → 2024-08-07 10:45 | Outpatient (BNV) | payer OTHER, SELFPAY | PROVIDERS: PCP Internal Medicine; Visit Provider Internal Medicine | DX: Z12.31 Encounter for screening mammogram for malignant neoplasm of breast (principal) | CPT/HCPCS: 77063; 77067 ==

== ENCOUNTER 2025-02-22 16:26 | Outpatient (AMB) | payer OTHER, SELFPAY ==
--- NOTE | 2025-02-22 16:37 | A.OFFPC_ITS ---
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 Required: No Accompanied by: Self / Same As Patient Allergies No Known Allergies Allergy (Verified 02/22/25 16:54) Medication List - Last Reconciled 02/22/25 by Shirley Heart MD cholecalciferol (vitamin D3) 25 mcg PO DAILY 90 days trazodone 50 mg PO BEDTIME PRN 30 days Tobacco use date assessed: 02/22/25 Dental Screening Dental Screen Date: 02/22/25 Did you have a dental visit in the last 12 months?: Yes Did you have a dental problem in the last 6 months where you did not have access to dental care?: No Was dental information given to patient?: Patient has dentist HPI HPI Comments History of Present Illness Details The patient is a 45-year-old female presenting with neck pain that started a week ago. 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 Numbness in the hands is also reported. There is no history of recent trauma. Previous physical therapy sessions have been beneficial, and there is a history of vitamin D deficiency managed with supplementation. The patient also uses trazodone for sleep disturbances, experiencing daytime fatigue. A recent thyroid ultrasound indicated a nodule, and further imaging is planned. [facility] Medical History (Updated 02/22/25 @ 18:59 by Shirley Heart MD) Cervical radiculopathy Scapular dysfunction Allergic reaction Rash Screening for cervical cancer Encounter for screening examination for sexually transmitted disease Physical exam Internal and external bleeding hemorrhoids Dermoid cyst of face Hemorrhoids Hypovitaminosis D Blurry vision Family history of hypertension Right shoulder pain Surgical History H/O hemorrhoidectomy Hx of wisdom tooth extraction Family History Father Neuropathy Mother No problems noted. 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 1. Little interest or pleasure in doing things: several days 2. Feeling down, depressed, or hopeless: several days 3. Trouble falling or staying asleep, or sleeping too much: several days 4. Feeling tired or having little energy: several days 5. Poor appetite or overeating: not at all 6. Feeling bad about yourself - or that you are a failure or have let yourself or your family down: not at all 7. Trouble concentrating on things, such as reading the newspaper or watching television: several days 8. Moving or speaking so slowly that other people could have noticed. Or the opposite - being so fidgety or restless that you have been moving around a lot more than usual: not at all 9. Thoughts that you would be better off or of hurting yourself in some w ay: not at all Total score: 5 Depression Screening Interpretation: Positive Depression Screening Follow-up: Existing condition, In treatment and Follow-up Visit Requested Depression Screening Done: Yes 31591 - PHQ-9 Billing: Yes Source: Developed by Drs. Heladio Giraldo, Radha Ibrahim, Jd Stauffer and colleagues, with an educational bert from [employer]. Thrive Questionnaire Date Thrive assessed: 02/22/25 I am a: Patient What is your living situation today?: I have a steady place to live Within the past 12 months, did the food you bought not last and you didn't have the money to get more?: Never true Within the past 12 months, did you worry whether your food would run out before you got money to buy more?: I choose not to answer this question Do you have trouble paying for medicines?: No Do you have trouble getting transportation to medical appointments?: No Do you have trouble paying your heating and electricity bill?: I choose not to answer this question Do you have trouble taking care of your child, family member or friend?: No Do you have trouble with day-to-day activities such as bathing, preparing meals, shopping, managing finances, etc.?: No Are you currently unemployed and looking for a job?: No Are you interested in more education?: I choose not to answer this question Please select the resources that you would like help with: None Currently or been in a relationship where the following occur: I choose not to answer THRIVE Score: 0 AUDIT C Alcohol Use Questionnaire (AUDIT-C) 1. How often do you have a drink containing alcohol?: Never Total Score: 0 Score Reviewed/Action Taken: No MARIA ELENA-7 AMB Questionnaire MARIA ELENA-7 Date MARIA ELENA - 7 assessed: 02/22/25 Feeling nervous, anxious, or on edge: 1 = Several days Not being able to stop or control worryin = Several days Worrying too much about different things: 1 = Several days Trouble relaxin = Several days Being so restless that it is hard to sit still: 0 = Not at all Becoming easily annoyed or irritable: 1 = Several days Feeling afraid as if something awful might happen: 0 = Not at all Total MARIA ELENA-7 score (0-4 normal; 5-9 mild; 10-14 moderate; 15-21 severe): 5 Source: Developed by Drs. Heladio Giraldo, Radha Ibrahim, Jd Stauffer and colleagues, with an educational bert from [employer]. MARIA ELENA-7 Assessment Billing MARIA ELENA-7 Assessment Tool: MARIA ELENA-7 Assessment 41189 Review of Systems Const All systems reviewed & are unremarkable except as noted in HPI and below Card Denies chest pain at rest, Denies chest pain with activity, Denies edema, Denies irregular heart rhythm, Denies claudication, Denies dyspnea, Denies dyspnea on exertion, Denies orthopnea, Denies paroxysmal nocturnal dyspnea and Denies slow heart rate Resp Denies cough, Denies dyspnea and Denies dyspnea on exertion Physical exam (Primary Care) Vital Signs: Last Vital Signs BP 108/70 02/22/25 16:39 BMI result Body Mass Index 23.7 Tobacco/Smoking Status: Tobacco use Status Tobacco use date assessed 02/22/25 02/22/25 16:42 Patient Tobacco Use Status Never used Tobacco 02/22/25 16:42 e-Cigarette/Vaping Use Never Used 02/22/25 16:42 PHQ-9: PHQ-9 Score PHQ-9: Total score 5 02/22/25 17:22 Depression Screening Interpretation: Positive Depression Screening Follow-up: Existing condition, In treatment and Follow-up Visit Requested Thrive Assessment: Date of Thrive Assessment Date Thrive assessed 02/22/25 02/22/25 16:42 Currently or been in a relationship where the following occur: I choose not to answer Resp Effort & Inspection: normal respiratory effort Auscultation: clear to auscultation bilaterally Cardio Jugular venous distension: no JVD Rate: regular rate Rhythm: regular rhythm Heart sounds: S1 normal heart sound present and S2 normal heart sound present Extrem General: Yes full ROM Coding Level of Care Code Est Pt Level 4 (36717) Complex EM visit Add On G2211 Diagnoses Cervical radiculopathy M54.12 Left thyroid nodule E04.1 Hypovitaminosis D E55.9 Insomnia G47.00 Additional Codes MARIA ELENA-7 Assessment Billing - MARIA ELENA-7 Assessment Tool: MARIA ELENA-7 Assessment 70909 ([id number]) PHQ-9 - 21505 - PHQ-9 Billing: Yes ([id number]) Time Spent (min) 22 Assessment & Plan Assessment & Plan (1) Cervical radiculopathy: Code(s): M54.12 - Radiculopathy, cervical region Category: Medical (2) Left thyroid nodule: Code(s): E04.1 - Nontoxic single thyroid nodule Category: Medical (3) Hypovitaminosis D: Code(s): E55.9 - Vitamin D deficiency, unspecified Category: Medical (4) Insomnia: Code(s): G47.00 - Insomnia, unspecified Category: Medical Plan A follow-up ultrasound has been scheduled to evaluate the thyroid nodule further. I will continue the current management strategy for the patient's neck pain with physical therapy, considering an MRI should the symptoms not improve within six weeks. The patient will maintain vitamin D supplementation for deficiency, and trazodone will remain part of her regimen for sleep disturbances. Recommendations include lifestyle adjustments to improve possible acidity that may affect her sleep patterns. Patient was informed and verbally consented to the use of an ambient scribe for clinic note documentation during this visit. I discussed the findings of the thyroid ultrasound with the patient, explaining that the presence of a nodule warrants further evaluation, hence the scheduling of another ultrasound. For the neck pain, I outlined the plan of physical therapy and potential MRI, emphasizing that improvement is expected within six weeks before pursuing further interventions. Additionally, we discussed the role of vitamin D supplementation in managing her deficiency and the continued use of trazodone to assist with sleep, reviewing potential side effects and the importance of monitoring symptom changes. I advised lifestyle modifications, particularly avoiding meals three hours before bedtime, to address symptoms that may be exacerbated while sleeping, such as acidity. Orders: Orders US thyroid Today E04.1 - Nontoxic single thyroid nodule XR cervical spine 2V Today M54.12 - Radiculopathy, cervical region PT Evaluation and Treatment Today M54.12 - Radiculopathy, cervical region Medications: New nabumetone 750 mg PO BID 60 tabs 0RF 30 days Patient Instructions: - Continue with physical therapy for neck pain. - Take vitamin D supplements as directed. - Use trazodone for sleep support as prescribed. - Avoid eating three hours before bed to help with acidity. - Attend the scheduled follow-up ultrasound for your thyroid. - Report any significant changes in symptoms to me.
[2025-02-22 16:39] VITALS: BP 108/70; BMI 23.7
== END 2025-02-22 17:04 | disposition home or self-care (01) ==
LOC: HO.HMCH 16:27
PROVIDERS: PCP Internal Medicine; Visit Provider Internal Medicine
DX: M54.12 Radiculopathy, cervical region (principal); E04.1 Nontoxic single thyroid nodule; E55.9 Vitamin D deficiency, unspecified; G47.00 Insomnia, unspecified

== ENCOUNTER → 2025-02-22 16:26 | Outpatient (BNVA) | payer OTHER, SELFPAY | PROVIDERS: PCP Internal Medicine; Visit Provider Internal Medicine | DX: M54.12 Radiculopathy, cervical region (principal); E04.1 Nontoxic single thyroid nodule; E55.9 Vitamin D deficiency, unspecified; G47.00 Insomnia, unspecified | CPT/HCPCS: 96127 ==

== ENCOUNTER 2025-07-06 17:27 | Outpatient (AMB) | payer OTHER, SELFPAY ==
[2025-07-06 17:28] VITALS: BP 112/70; PULSE 77; O2SAT 98; BMI 22.1
--- NOTE | 2025-07-06 17:28 | MHC.PC.OV ---
Vital Signs 07/06/25 17:28 Height 5 ft 4 in Weight 129 lb BMI 22.1 BP 112/70 Blood Pressure Location Lt brachial Position Sitting Pulse 77 Pulse Source Pulse Oximeter Pulse Oximetry (%) 98 Oxygen Delivery Method Room Air Intake Visit Reasons: ANNUAL [employer] Required: No Accompanied by: Self / Same As Patient Allergies No Known Allergies Allergy (Verified 07/06/25 17:48) Medication List - Last Reconciled 07/06/25 by Shirley Heart MD cholecalciferol (vitamin D3) 25 mcg PO DAILY 90 days trazodone 50 mg PO BEDTIME PRN 30 days Tobacco use date assessed: 02/22/25 Dental Screening Dental Screen Date: 02/22/25 HPI HPI Comments History of Present Illness Details This is a 45-year-old female that comes for her physical exam. Mammogram done last year and another mammogram was ordered. Tdap done 2016 and next Tdap should be 2026. Pap smear done 2022 with HPV negative. She complains of left elbow pain that started few months ago and x-ray and occupational therapy will be ordered. She also complains of having something in the neck that bothers her and that she is always producing a lot of phlegm even when she is not sick. Saw ENT with no significant advise for it. Had a CT scan of the neck showing left thyroid lesion and I will order ultrasound of the thyroid and thyroid function testing. To rule out GERD I will order upper GI series. I will also give her something for allergies for allergic rhinitis to see if this helps. She does have mild recurrent major depression with a PHQ-9 of 5 but declines any need for treatment. [facility] Medical History (Updated 07/06/25 @ 20:51 by Shirley Heart MD) Cervical radiculopathy Scapular dysfunction Allergic reaction Rash Screening for cervical cancer Encounter for screening examination for sexually transmitted disease Physical exam Internal and external bleeding hemorrhoids Dermoid cyst of face Hemorrhoids Hypovitaminosis D Blurry vision Family history of hypertension Right shoulder pain Surgical History H/O hemorrhoidectomy Hx of wisdom tooth extraction Family History Father Neuropathy Mother No problems noted. 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 1. Little interest or pleasure in doing things: several days 2. Feeling down, depressed, or hopeless: several days 3. Trouble falling or staying asleep, or sleeping too much: several days 4. Feeling tired or having little energy: several days 5. Poor appetite or overeating: not at all 6. Feeling bad about yourself - or that you are a failure or have let yourself or your family down: not at all 7. Trouble concentrating on things, such as reading the newspaper or watching television: several days 8. Moving or speaking so slowly that other people could have noticed. Or the opposite - being so fidgety or restless that you have been moving around a lot more than usual: not at all 9. Thoughts that you would be better off or of hurting yourself in some way: not at all Total score: 5 Depression Screening Interpretation: Positive Depression Screening Follow-up: Existing condition, In treatment and Follow-up Visit Requested Depression Screening Done: Yes 57534 - PHQ-9 Billing: Yes Source: Developed by Drs. Heladio Giraldo, Radha Ibrahim, Jd Stauffer and colleagues, with an educational bert from [employer]. Thrive Questionnaire Date Thrive assessed: 02/22/25 I am a: Patient What is your living situation today?: I have a steady place to live Within the past 12 months, did the food you bought not last and you didn't have the money to get more?: Never true Within the past 12 months, did you worry whether your food would run out before you got money to buy more?: I choose not to answer this question Do you have trouble paying for medicines?: No Do you have trouble getting transportation to medical appointments?: No Do you have trouble paying your heating and electricity bill?: I choose not to answer this question Do you have trouble taking care of your child, family member or friend?: No Do you have trouble with day-to-day activities such as bathing, preparing meals, shopping, managing finances, etc.?: No Are you currently unemployed and looking for a job?: No Are you interested in more education?: I choose not to answer this question Please select the resources that you would like help with: None Currently or been in a relationship where the following occur: I choose not to answer THRIVE Score: 0 AUDIT C Alcohol Use Questionnaire (AUDIT-C) 1. How often do you have a drink containing alcohol?: Monthly or less 2. How many drinks containing alcohol do you have on a typical day when you are drinking?: 1 or 2 3. How often do you have six or more drinks on one occasion?: Never Total Score: 1 Score Reviewed/Action Taken: No MARIA ELENA-7 AMB Questionnaire MARIA ELENA-7 Date MARIA ELENA - 7 assessed: 02/22/25 Source: Developed by Drs. Heladio Giraldo, Radha Ibrahim, Jd Stauffer and colleagues, with an educational bert from [employer]. Review of Systems Const All systems reviewed & are unremarkable except as noted in HPI and below Card Denies chest pain at rest, Denies chest pain with activity, Denies edema, Denies irregular heart rhythm, Denies claudication, Denies dyspnea, Denies dyspnea on exertion, Denies orthopnea, Denies paroxysmal nocturnal dyspnea and Denies slow heart rate Resp Denies cough, Denies dyspnea and Denies dyspnea on exertion GI Denies abdominal pain, Denies change in bowel habits, Denies excessive flatus, Denies nausea and Denies vomiting Musc Reports arthralgias Physical exam (Primary Care) Vital Signs: Last Vital Signs Pulse 77 07/06/25 17:28 BP 112/70 07/06/25 17:28 Pulse Ox 98 07/06/25 17:28 Oxygen Delivery Method Room Air 07/06/25 17:28 BMI result Body Mass Index 22.1 Tobacco/Smoking Status: Tobacco use Status Tobacco use date assessed 02/22/25 07/06/25 17:32 Patient Tobacco Use Status Never used Tobacco 07/06/25 17:32 Tobacco use type Cigarette 07/06/25 17:32 e-Cigarette/Vaping Use Never Used 07/06/25 17:32 PHQ-9: PHQ-9 Score PHQ-9: Total score 5 07/06/25 17:56 Depression Screening Interpretation: Positive Depression Screening Follow-up: Existing condition, In treatment and Follow-up Visit Requested Thrive Assessment: Date of Thrive Assessment Date Thrive assessed 02/22/25 07/06/25 17:32 Currently or been in a relationship where the following occur: I choose not to answer [facility] Head: Yes normal to inspection, Yes normocephalic and Yes atraumatic Ears: external ears normal Eyes General: appearance normal, both eyes and all related structures Eyelids: Yes eyelids normal Conjunctivae: conjunctivae normal Neck Neck: Yes normal visual inspection and Yes supple Resp Effort & Inspection: normal respiratory effort Auscultation: clear to auscultation bilaterally Cardio Jugular venous distension: no JVD Rate: regular rate Rhythm: regular rhythm Heart sounds: S1 normal heart sound present and S2 normal heart sound present GI Inspection: Yes normal to inspection Palpation (GI): Soft to palpation and nontender Auscultation: normal bowel sounds Skin General skin exam: no rashes or lesions noted Neuro General: no focal motor deficits Extrem General: Yes full ROM Left upper extremity: elbow/forearm Details: tenderness Psych Appearance: grossly normal Coding Level of Care Code Est Pt Level 4 (16238) Est Pt Prev Care 40-64y(89581) Diagnoses Physical exam Z00.00 Lateral epicondylitis of left elbow M77.12 Chronic GERD K21.9 Thyroid nodule E04.1 Mild recurrent major depression F33.0 Additional Codes PHQ-9 - 40677 - PHQ-9 Billing: Yes ([id number]) Time Spent (min) 38 Assessment & Plan Assessment & Plan (1) Physical exam: Code(s): Z00.00 - Encounter for general adult medical examination without abnormal findings Category: Medical (2) Lateral epicondylitis of left elbow: Code(s): M77.12 - Lateral epicondylitis, left elbow Category: Medical (3) Chronic GERD: Code(s): K21.9 - Gastro-esophageal reflux disease without esophagitis Category: Medical (4) Thyroid nodule: Code(s): E04.1 - Nontoxic single thyroid nodule Category: Medical (5) Mild recurrent major depression: Code(s): F33.0 - Major depressive disorder, recurrent, mild Category: Medical Plan Repeat physical exam in a year. X-ray ordered for left elbow as well as occupational therapy. Ultrasound of the thyroid order as well as thyroid function testing. Antihistamines given for allergic rhinitis. Upper GI ordered to rule out GERD or any other epigastric abnormality. Mammogram order for this year. Start screening for colon cancer next year. Next Pap smear 2027. Next Tdap 2026. Orders: Orders XR elbow LT 2V Today M77.12 - Lateral epicondylitis, left elbow US thyroid Today E04.1 - Nontoxic single thyroid nodule Thyroid Stimulating Hormone Today E04.1 - Nontoxic single thyroid nodule Free T4 (Free Thyroxine) Today E04.1 - Nontoxic single thyroid nodule Lipid Panel Today E78.5 - Hyperlipidemia, unspecified Vitamin B12 and Folate Today E53.8 - Deficiency of other specified B group vitamins OT Evaluation and Treatment Today M77.12 - Lateral epicondylitis, left elbow MM tomosynthesis screening BI Today Z12.31 - Encounter for screening mammogram for malignant neoplasm of breast [place] upper GI series Today K21.9 - Gastro-esophageal reflux disease without esophagitis Complete Blood Count Auto Diff Today K21.9 - Gastro-esophageal reflux disease without esophagitis Comprehensive [place]. Panel Fast Today K21.9 - Gastro-esophageal reflux disease without esophagitis Vitamin D 25-OH Total Today E55.9 - Vitamin D deficiency, unspecified Medications: New nabumetone 750 mg PO BID 14 tabs 0RF 7 days M77.12 - Lateral epicondylitis, left elbow
== END 2025-07-06 18:00 | disposition home or self-care (01) ==
LOC: HO.HMCH 17:28
PROVIDERS: PCP Internal Medicine; Visit Provider Internal Medicine
DX: Z00.00 Encounter for general adult medical examination without abnormal findings (principal); M77.12 Lateral epicondylitis, left elbow; K21.9 Gastro-esophageal reflux disease without esophagitis; E04.1 Nontoxic single thyroid nodule; F33.0 Major depressive disorder, recurrent, mild

== ENCOUNTER → 2025-07-06 17:27 | Outpatient (BNVA) | payer OTHER, SELFPAY | PROVIDERS: PCP Internal Medicine; Visit Provider Internal Medicine | DX: Z00.00 Encounter for general adult medical examination without abnormal findings (principal); M77.12 Lateral epicondylitis, left elbow; K21.9 Gastro-esophageal reflux disease without esophagitis; E04.1 Nontoxic single thyroid nodule; F33.0 Major depressive disorder, recurrent, mild; E78.5 Hyperlipidemia, unspecified; E53.8 Deficiency of other specified B group vitamins; E55.9 Vitamin D deficiency, unspecified | CPT/HCPCS: 96127 ==

== ENCOUNTER 2025-08-02 16:14 | Outpatient (REF) | payer OTHER, SELFPAY ==
--- NOTE | ~2025-08-02 | XR_ITS ---
EXAMINATION: XR ELBOW, LEFT CLINICAL INFORMATION: M77.12 - Lateral epicondylitis, left elbow COMPARISON: None available. TECHNIQUE: AP, lateral, and oblique views of the left elbow. FINDINGS: No acute fracture, deformity, degenerative change, or evidence of joint effusion is seen. No fracture line is noted. XR/XR elbow LT 2V IMPRESSION: Unremarkable left elbow. Electronically signed by: Young Barr MD 08/02/2025 05:09 PM EDT
== END 2025-08-02 16:15 | disposition home or self-care (01) ==
LOC: HO.XRAY 16:14
PROVIDERS: PCP Internal Medicine; Visit Provider Internal Medicine
DX: M77.12 Lateral epicondylitis, left elbow (principal)
CPT/HCPCS: 73070

== ENCOUNTER → 2025-08-02 16:18 | Outpatient (BNV) | payer OTHER, SELFPAY | PROVIDERS: PCP Internal Medicine; Visit Provider Radiology Diagnostic Radiology | DX: M77.12 Lateral epicondylitis, left elbow (principal) | CPT/HCPCS: 73070 ==

== ENCOUNTER 2025-09-05 10:17 | Outpatient (REF) | payer OTHER, SELFPAY ==
--- NOTE | ~2025-09-05 | MM_ITS ---
EXAMINATION: MM SCREENING DIGITAL BREAST TOMOSYNTHESIS, BILATERAL CLINICAL INFORMATION: Screening. Asymptomatic. COMPARISON: Comparison made to multiple prior, most recent August 07, 2024, and most remote May 11, 2021. TECHNIQUE: Digital breast tomosynthesis is performed in mediolateral oblique and craniocaudal views along with computer-aided detection (CAD). Synthesized 2D images are generated from the tomosynthesis. FINDINGS: BREAST COMPOSITION: The breasts are heterogeneously dense, which may obscure small masses. BILATERAL BREASTS: No significant masses, suspicious calcifications or other abnormalities are seen in either breast. MM/MM tomosynthesis screening BI IMPRESSION: BILATERAL BREASTS: Negative, no mammographic evidence of malignancy. Normal interval follow-up is recommended in 12 months. ASSESSMENT: BI-RADS: Category 1: Negative RECOMMENDATION: Routine annual mammography screening. FOLLOW-UP: 1 year F/U This examination should not preclude the clinical evaluation of a suspicious palpable abnormality. This patient's information was entered into a reminder system with a target due date for their next mammogram. Electronically signed by: Brandon Liriano MD 09/05/2025 08:21 PM DAVID
--- OUTSIDE RECORDS SUMMARY | 2025-09-05 21:18 | XMS_ITS | Data Portability ---
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 Dentition and oral examination are within normal limits. Flexible laryngoscopy was obtained today which shows fairly significantly enlarged base of tongue. More pronounced enlargement on the right side without discrete mass or ulceration. It is soft to palpation but obscures the view of the larynx. Given these findings I have recommended a CT scan for further evaluation. More than likely however her symptoms are related to reflux. I have recommended a trial of omeprazole and instructed her in proper use. Follow-up in 4 to 6 weeks to review scan and symptoms. All questions were answered. laurent Not available 12/21/2024 10:58:24 02/08/2025 02/08/2025 44-year-old female presents for reevaluation of sour taste in the mouth. As she has had improvement with use of omeprazole she will continue use. I have recommended referral to GI for evaluation of possible hiatal hernia. In regard to CT scan I have relayed findings and recommended thyroid ultrasound which will be ordered. Follow-up after scan for review and further planning if necessary. All questions were answered. [email or web address] Not available 02/08/2025 15:47:30 Plan of Treatment Reminders Order Date Submit Date Provider Last Modified By Organization Details Last Modified Time Details Appointments None recorde d. Lab None recorde d. Referral gastroe nterolo gist referra l 2024 025 [email or web address] [facility] Gastroenterology Scheduling Department, [address] , [place], [address], 12:22:15 Procedures None recorde d. Surgeries None recorde d. Imaging US, thyroid 2024 025 [email or web address] [facility], [address] , [facility] [place] [address], [place], [address], 16:51:26 CT, neck, soft tissue, w/ contras t 2024 025 [email or web address] [facility], [address] [facility], [address], [address], 11:48:56 Medication Orders omepraz ole 20 mg capsule ,delaye d release 2024 025 [facility]/Pharmacy #1972, [address] [place] [address], [address], 11:00:05 Patient TargetsNo targets recorded. Patient InstructionsNo instructions recorded. Reason for Referral Display Associate Referral for Gastroesophageal reflux disease without esophagitis Referring Physician: Annie Gibbs, Otolaryngology, Encounter Date: 02/08/2025 Results Created Date Observation Date Name Description Value Unit Range Abnormal Flag Note LastModifiedBy Organization Detail LastModifiedTime 01/09/2001/06/2025 CT, neck, soft tissu e, w/ contr ast No observ ation record ed. [email or web address] [facility] [address], [address], 01/10/2025 09:15:59 03/16/2003/15/2025 US, thyro id No observ ation record ed. [facility] [address], [address], 03/16/2025 11:38:53 Result Notes None recorded. Problems Name Problem SNOMED Code Status Onset Date Resolution Date Notes Provider Name and Address Organization Details Recorded Time Feeling of lump in throat 319864572 Active 2024 ANNIE GIBBS PA-C [address] [place] [address],[place] [address], [place], [address], [facility] - [facility] 10:58:39 Gastroesophage al reflux disease without esophagitis 457335278 Active 2024 ANNIE GIBBS PA-C [address] [place] [address], [place], [address], [facility] - [facility] 10:58:46 Thyroid nodule 004328985 Active 2024 ANNIE GIBBS PA-C [address] [place] [address],[place] [address], [place], [address], [facility] - [facility] 15:47:41 Problem Notes None recorded. Procedures Surgical History Date Name Laterality Status Provider Name and Address Organization Details Recorded Time 12/21/2024 FOL_DP completed ANNIE GIBBS PA-C [address] [place] [address],[place] [address], [place], [address], [facility] - [facility] 12/21/2024 10:57:12 Imaging Results None recorded. Procedure Notes None recorded. Medical Equipment None Reported. Allergies No known drug allergies Medications Name Sig Start Date Stop Date Status Note LastModified by Organization Details LastModified Time trazodone 50 mg tablet TAKE 1 TABLET BY MOUTH AT BEDTIME NEEDED FOR SLEEPING active Not Available Not Available No t Available omeprazole 20 mg capsule,delaye d release 1 CAPSULE 1 HOUR BEFORE FIRST MEAL DAILY 2024 active Not Available Not Available Not Avai lable cholecalcifero l (vitamin D3) 25 mcg (1,000 unit) capsule TAKE 1 CAPSULE BY MOUTH DAILY FOR 90 DAYS active Not Available Not Available No t Available Vitals Date Recorded Body weight Body mass index (BMI) Body height Provider Name and Address Organization Details Last Updated DateTime 12/21/2024 52912.38 g 24.5 kg/m2 157.48 cm Magdalena Dinh [place] - [facility] 12/21/2024 10:40:11 Date Recorded Body height Body mass index (BMI) Body weight Provider Name and Address Organization Details Last Updated DateTime 02/08/2025 157.48 cm 24.5 kg/m2 17486.38 g Camila Bean [place] - [facility] 02/08/2025 15:22:02 Social History None recorded. Functional Status None recorded. Mental Status None recorded. Family History Nothing Reported. Medical History Condition Response Anxiety Y Gynecological HistoryNo gynecological history recorded. Obstetrics History GPAL:G 0 P 0 0 0 0 Past Encounters Encounter ID Performer Location Encounter Start Date Encounter Closed Date Diagnosis/Indication Diagnosis SNOMED-CT Code Diagnosis ICD10 Code Diagnosis IMO Codes Diagnosis Note [id number] ANNIE GIBBS PA-C [facility] [address] [address] 12/21/2024 10:14:35 12/21/2024 10:55:05 Feeling of lump in throat 862574580 R09.89 Gastroesop hageal reflux disease without esophagitis 027910981 K21.9 [id number] ANNIE GIBBS PA-C [facility] [address] [address] 02/08/2025 15:19:28 02/08/2025 15:38:05 Feeling of lump in throat 722263888 R09.89 Gastroesop hageal reflux disease without esophagitis 363920410 K21.9 Thyroid nodule 569162924 E04.1 Health Concerns Section Related Observation LastModified by Organization Detai ls LastModified Time None Recorded Concern Status LastModified by Organization Details LastModified Time None Recorded Advance Directives Directive None Recorded Payers Insurance Date Sequence Insurance Name Policy Number Policy Guardado Covered Member ID Guardado Member ID Guarantor Name 02/08/2025 1 [facility] [id number] Teresa Watkins [id number] Teresa Watkins Notes Date Note Type Note Provider Name and Address Organization Details Recorded Time 12/21/2024 text/html ROS as noted in the HPI 44-year-old female presents for evaluation of globus sensation. For the past 6 months to a year she has felt like she has something stuck in her throat like phlegm but she is not able to cough anything up. This is most prevalent in the morning. She has also noticed a bad taste in her mouth and halitosis. She does not have any other overt heartburn symptoms like burning in the throat or chest. She does not have any sinus symptoms. No pain or difficulty swallowing and no history of tobacco use. ANNIE GIBBS PA-C [address] [facility] [address], [place], [address], [facility] - [facility] 12/21/2024 11:00:39 02/08/2025 text/html ROS as noted in the HPI 44-year-old female presents for reevaluation of sour taste in the mouth. This was thought to be related to acid reflux and she was prescribed omeprazole. She has been using it and has noticed a significant reduction in the sour taste in her mouth but she does continue to have this symptom occasionally. Flexible laryngoscopy at last visit showed enlarged base of tongue without a discrete mass on examination or palpation. A CT scan of the neck was ordered. Results show no lesion in the base of tongue or at the level of the larynx. She does have a small thyroid nodule and ultrasound was recommended. ANNIE GIBBS PA-C [address] [facility] [address], [place], [address], [facility] - [facility] 02/08/2025 15:48:21 OBGyn Episode No OBEpisode recorded.
== END 2025-09-05 10:18 | disposition home or self-care (01) ==
LOC: HO.MAMMO 10:17
PROVIDERS: PCP Internal Medicine; Visit Provider Internal Medicine
DX: Z12.31 Encounter for screening mammogram for malignant neoplasm of breast (principal)
CPT/HCPCS: 77063; 77067

== ENCOUNTER → 2025-09-05 10:30 | Outpatient (BNV) | payer OTHER, SELFPAY | PROVIDERS: PCP Internal Medicine; Visit Provider Radiology Body Imaging | DX: Z12.31 Encounter for screening mammogram for malignant neoplasm of breast (principal) | CPT/HCPCS: 77063; 77067 ==

== ENCOUNTER 2025-10-08 10:49 | Outpatient (REF) | payer OTHER, SELFPAY ==
--- NOTE | ~2025-10-08 | US_ITS ---
EXAMINATION: US THYROID CLINICAL INFORMATION: Nontoxic single thyroid nodule COMPARISON: None available. TECHNIQUE: Linear transducer grayscale and color Doppler examination with attention to the region of the thyroid. FINDINGS: SIZE: Measurements of the thyroid lobes and nodules are given in sagittal, anteroposterior and transverse dimensions respectively. Right Thyroid Lobe: 5.7 x 1.3 x 1.5 cm, volume 6.0 mL. Parenchyma: The gland echotexture is homogeneous. Thyroid vascularity is normal. Left Thyroid Lobe: 5.0 x 1.2 x 1.6 cm, volume 5.0 mL. Parenchyma: The gland echotexture is normal. Thyroid vascularity is normal. Isthmus: 0.2 cm in maximum AP dimension. Estimated total number of nodules greater than or equal to 1 cm: 1. [employer] nodules are described as follows: 1. Location: Left upper pole. Size: 0.7 x 0.3 x 0.6 cm, volume 0.07 mL. Nodule characteristics: Composition: Cystic(0). Echogenicity: None Shape: Wider Margins: Smooth (0). Echogenic Foci: None (0). ACR TI-RADS total points: 0 ACR TI-RADS category: 1 2. Location: Left midpole. Size: 1.0 x 0.3 x 0.7 cm, volume 0.1 mL. Nodule characteristics: Composition: Cystic(0). Echogenicity: None Shape: Wider Margins: Smooth (0). Echogenic Foci: None (0). ACR TI-RADS total points: 0 ACR TI-RADS category: 1 NODES: No lymphadenopathy is seen in the tissue surrounding the thyroid gland. US/US thyroid IMPRESSION: Benign left thyroid lobe cysts. Otherwise unremarkable ultrasound thyroid gland. ACR TI-RADS RECOMMENDATION REFERENCE: Ultrasound-guided fine-needle aspiration, followup ultrasound, no further follow up. * TR1 (0 point) and TR2 (2 points): No FNA or follow up. * TR3 (3 points): FNA if more than or equal to 2.5 cm in maximum dimension, followup ultrasound in 1, 3 and 5 years if 1.5 to 2.4 cm in maximum dimension. * TR4 (4-6 points): FNA if more than or equal to 1.5 cm in maximum dimension, followup ultrasound in 1, 2, 3 and 5 years if 1 to 1.4 cm in maximum dimension. * TR5 (more than or equal to 7 points): FNA if more than or equal to 1 cm in maximum dimension, followup ultrasound every year for 5 years if 0.5 to 0.9 cm in maximum dimension. * TR3, TR4 or TR5 nodules that are below the size threshold for followup receive no follow up. Electronically signed by: Juanjose Hays MD 10/10/2025 08:06 AM DAVID
--- OUTSIDE RECORDS SUMMARY | 2025-10-08 10:52 | XMS_ITS | Data Portability ---
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 Surgeries None recorde d. Imaging US, thyroid 2024 025 [email or web address] [facility], [address] , [facility] [address], [place], [address], 16:51:26 CT, neck, soft tissue, w/ contras t 2024 025 [facility], [address] [facility], [address], [address], 11:48:56 Medication Orders omepraz ole 20 mg capsule ,delaye d release 2024 025 [facility]/Pharmacy #1972, [address] [place] [address], [address], 11:00:05 Patient TargetsNo targets recorded. Patient InstructionsNo instructions recorded. Reason for Referral Director On Air Referral for Gastroesophageal reflux disease without esophagitis Referring Physician: Annie Gibbs, Otolaryngology, Encounter Date: 02/08/2025 Results Created Date Observation Date Name Description Value Unit Range Abnormal Flag Note LastModifiedBy Organization Detail LastModifiedTime 01/09/2001/06/2025 CT, neck, soft tissu e, w/ contr ast No observ ation record ed. [email or web address] [facility] [address], [address], 01/10/2025 09:15:59 03/16/2003/15/2025 US, thyro id No observ ation record ed. [facility] [address], [address], 03/16/2025 11:38:53 Result Notes None recorded. Problems Name Problem SNOMED Code Status Onset Date Resolution Date Notes Provider Name and Address Organization Details Recorded Time Feeling of lump in throat 584169440 Active 2024 ANNIE GIBBS PA-C [address] [place] [address],[place] [address], [place], [address], [facility] - [facility] [place] 10:58:39 Gastroesophage al reflux disease without esophagitis 297406333 Active 2024 ANNIE GIBBS PA-C [address] [place] [address], [place], [address], [facility] - [facility] [place] 10:58:46 Thyroid nodule 580873801 Active 2024 ANNIE GIBBS PA-C [address] [place] [address],[place] [address], [place], [address], [facility] - [facility] [place] 15:47:41 Problem Notes None recorded. Procedures Surgical History Date Name Laterality Status Provider Name and Address Organization Details Recorded Time 12/21/2024 FOL_DP completed ANNIE GIBBS PA-C [address] [place] [address],[place] [address], [place], [address], [facility] - [facility] [place] 12/21/2024 10:57:12 Imaging Results None recorded. Procedure [...] Address Organization Details Last Updated DateTime 12/21/2024 13182.38 g 24.5 kg/m2 157.48 cm Magdalena Dinh [place] - [facility] [place] 12/21/2024 10:40:11 Date Recorded Body height Body mass index (BMI) Body weight Provider Name and Address Organization Details Last Updated DateTime 02/08/2025 157.48 cm 24.5 kg/m2 86869.38 g Camila Bean [place] - [facility] 02/08/2025 15:22:02 Social History None recorded. Functional Status None recorded. Mental Status None recorded. Family History Nothing Reported. Medical History Condition Response Anxiety Y Gynecological HistoryNo gynecological history recorded. Obstetrics History GPAL:G 0 P 0 0 0 0 Past Encounters Encounter ID Performer Location Encounter Start Date Encounter Closed Date Diagnosis/Indication Diagnosis SNOMED-CT Code Diagnosis ICD10 Code Diagnosis IMO Codes Diagnosis Note [id number] ANNIE GIBBS PA-C [facility] [address] [address] 12/21/2024 10:14:35 12/21/2024 10:55:05 Feeling of lump in throat 465307016 R09.89 Gastroesop hageal reflux disease without esophagitis 320319032 K21.9 [id number] ANNIE GIBBS PA-C [facility] [address] [address] 02/08/2025 15:19:28 02/08/2025 15:38:05 Feeling of lump in throat 029709215 R09.89 Gastroesop hageal reflux disease without esophagitis 474631038 K21.9 Thyroid nodule 852259541 E04.1 Health Concerns Section Related Observation LastModified by Organization Detai ls LastModified Time None Recorded Concern Status LastModified by Organization Details LastModified Time None Recorded Advance Directives Directive None Recorded Payers Insurance Date Sequence Insurance Name Policy Number Policy Guardado Covered Member ID Guardado Member ID Guarantor Name 02/08/2025 1 [facility] [id number] Teresa Watkins [id number] Teresa Watkins Notes Date Note Type Note [...] of tobacco use. ANNIE GIBBS PA-C [address] [facility] [address], [place], [address], [facility] - [facility] 12/21/2024 11:00:39 02/08/2025 text/html ROS as [...] ultrasound was recommended. ANNIE GIBBS PA-C [address] [facility] [address], [place], [address], [facility] - [facility] 02/08/2025 15:48:21 OBGyn Episode No OBEpisode recorded.
== END 2025-10-08 10:50 | disposition home or self-care (01) ==
LOC: HO.US 10:49
PROVIDERS: PCP Internal Medicine; Visit Provider Internal Medicine
DX: E04.1 Nontoxic single thyroid nodule (principal)
CPT/HCPCS: 76536

== ENCOUNTER → 2025-10-08 10:51 | Outpatient (BNV) | payer OTHER, SELFPAY | PROVIDERS: PCP Internal Medicine; Visit Provider Radiology Diagnostic Radiology | DX: E04.1 Nontoxic single thyroid nodule (principal) | CPT/HCPCS: 76536 ==